=== PATIENT | female | born 1975 | race Two or more races ===

== ENCOUNTER 2021-09-21 04:29 | Inpatient (IN) | payer OTHER ==
[2021-09-17 17:13] VITALS: BMI 25.6
[2021-09-21] MEDS ORDERED: MIDAZOLAM HCL 2 MG/2 ML SINGLE DOSE VIAL ONE ×2 (07:01)
[2021-09-21] MEDS ORDERED: PROPOFOL 20 ML ONE ×2 (07:01)
[2021-09-21] MEDS ORDERED: ROCURONIUM BROMIDE 50 MG/5 ML SYRINGE ONE ×3 (07:02→09:58)
[2021-09-21] MEDS ORDERED: SUCCINYLCHOLINE CHLORIDE 200 MG/10 ML SYRINGE ONE (07:02)
[2021-09-21] MEDS ORDERED: BUPIVACAINE LIPOSOME/PF (EXPAREL) 266 MG/20 ML VIAL ONE (07:42)
[2021-09-21] MEDS ORDERED: BUPIVACAINE HCL/PF 0.25% (2.5MG/ML) 10 ML VIAL ONE (07:43)
[2021-09-21] MEDS ORDERED: HYDROmorphone HCl 2 MG/ML VIAL ONE (08:23)
[2021-09-21] MEDS ORDERED: ceFAZolin SODIUM 1 GM VIAL IVPB ONE (08:25)
[2021-09-21] MEDS ORDERED: DEXAMETHASONE SOD PHOSPHATE 4 MG/1 ML VIAL ONE (08:56)
[2021-09-21] MEDS ORDERED: ceFAZolin SODIUM 1 GM VIAL ONE (08:56)
[2021-09-21] MEDS ORDERED: KETOROLAC TROMETHAMINE 30 MG/1 ML VIAL ONE (08:56)
[2021-09-21] MEDS ORDERED: NEOSTIGMINE METHYLSULFATE 0.5 MG/ML - 10 ML MDV ONE (10:09)
[2021-09-21] MEDS ORDERED: GLYCOPYRROLATE 0.2 MG/1 ML VIAL ONE (10:09)
[2021-09-21] MEDS ORDERED: TRANEXAMIC ACID 1000 MG/10 ML VIAL ONE (10:10)
[2021-09-21] MEDS ORDERED: HYDROmorphone *PCA* 10MG/50ML DISP.SYRIN ONE (11:04)
[2021-09-21] MEDS: HYDROmorphone *PCA* 10MG/50ML DISP.SYRIN PCA SCH (11:10)
[2021-09-21] MEDS ORDERED: ONDANSETRON 4 MG/2 ML VIAL IVPUSH PRN ×2 (11:17)
[2021-09-21] MEDS ORDERED: ACETAMINOPHEN 1000 MG/100 ML BAG IVPB ONE ×2 (11:19→13:15)
[2021-09-21] MEDS ORDERED: ACETAMINOPHEN INJECTION 100 ML IVPB ONE (13:12)
[2021-09-21] MEDS: LACTATED RINGERS SOLUTION 1,000 ML IV SCH ×2 (13:40→22:00)
[2021-09-22] MEDS: LACTATED RINGERS SOLUTION 1,000 ML IV SCH ×2 (06:00→11:45)
[2021-09-22 08:07] LABS: HEMATOCRIT 32.4 % (32.4-45.2); HEMOGLOBIN 11.1 GM/dL (10.7-15.3); MCH 30.5 pg (25.7-33.7); MCHC 34.3 g/dl (32.0-36.0); MEAN CELL VOLUME 88.8 fl (80-96); MEAN PLT VOLUME 8.1 fl (7.5-11.1); PLATELET COUNT 223 10^3/uL (134-434); RBC 3.65 M/mm3 (3.60-5.2); RDW 13.2 % (11.6-15.6); WHITE BLOOD COUNT 7.8 K/mm3 (4.0-10.0)
[2021-09-22] MEDS ORDERED: oxyCODONE HCL 5 MG TABLET PO PRN ×2 (08:22)
[2021-09-22] MEDS ORDERED: ACETAMINOPHEN 325 MG TABLET (FP) PO PRN (08:22)
[2021-09-22] MEDS ORDERED: BISACODYL 10 MG SUPP.RECT PR PRN (08:24)
[2021-09-22 08:25] LABS: CALCIUM 8.2 mg/dL (8.5-10.1)
[2021-09-22 08:26] LABS: BLOOD UREA NITROGEN 7.7 mg/dL (7-18)
[2021-09-22 08:29] LABS: CREATININE 0.6 mg/dL (0.55-1.3)
[2021-09-22] MEDS: IBUPROFEN 600 MG TABLET (FP) PO PRN (11:12)
[2021-09-22] MEDS: SIMETHICONE 80 MG TAB.CHEW (FP) PO PRN (11:12)
[2021-09-22] MEDS: HYDROmorphone *PCA* 10MG/50ML DISP.SYRIN PCA SCH (11:45)
[2021-09-22] MEDS: ENOXAPARIN NA (PORCINE) 40 MG/0.4 ML DISP.SYRIN SQ SCH (14:33)
[2021-09-23] MEDS: IBUPROFEN 600 MG TABLET (FP) PO PRN (09:14)
[2021-09-23] MEDS: SIMETHICONE 80 MG TAB.CHEW (FP) PO PRN (09:15)
[2021-09-23] MEDS: ENOXAPARIN NA (PORCINE) 40 MG/0.4 ML DISP.SYRIN SQ SCH (09:15)
[2021-09-23 11:19] VITALS: BP 117/64; PULSE 92; TEMP 98.9
== END 2021-09-23 14:25 | disposition home or self-care (01) | DRG 513 ==
LOC: J2C 04:29 → J3W 14:09
PROVIDERS: ADMIT Obstetrics & Gynecology; ATTEND Obstetrics & Gynecology
PROC: 0UT70ZZ Resection of Bilateral Fallopian Tubes, Open Approach (ICD-10-PCS; 2021-09-21)
PROC: 0UT90ZZ Resection of Uterus, Open Approach (ICD-10-PCS; principal; 2021-09-21 08:00)
DX: N92.0 Excessive and frequent menstruation with regular cycle (principal); D25.9 Leiomyoma of uterus, unspecified; D64.9 Anemia, unspecified
CPT/HCPCS: 36415; 80048; 81025; 85027; 88302-TC; 88307-TC; 94010; 94760

== ENCOUNTER 2023-06-26 11:59 | Emergency (ER) | payer OTHER ==
[2023-06-26 12:11] VITALS: BP 103/58; PULSE 63; RESP 18; TEMP 98; BMI 28.3
[2023-06-26] MEDS ORDERED: ACETAMINOPHEN 500 MG TABLET (FP) ONE (12:47)
[2023-06-26] MEDS ORDERED: LIDOCAINE 4% PATCH TP ONE (12:47)
[2023-06-26 12:52] LABS: HCG,QUALITATIVE URINE Negative
[2023-06-26] MEDS: ACETAMINOPHEN 500 MG TABLET (FP) PO ONE (12:52)
[2023-06-26] MEDS: LIDOCAINE 4% PATCH TP ONE (12:52)
[2023-06-26] MEDS ORDERED: CYCLOBENZAPRINE HCL 10 MG TABLET (FP) ONE (12:54)
[2023-06-26] MEDS ORDERED: IBUPROFEN 600 MG TABLET (FP) PO ONE (12:54)
[2023-06-26] MEDS: CYCLOBENZAPRINE HCL 10 MG TABLET (FP) PO ONE (12:57)
[2023-06-26] MEDS: IBUPROFEN 600 MG TABLET (FP) PO ONE (12:57)
[2023-06-26 13:05] LABS: EPI CELLS 7 /uL (0-25.1); HYALINE CASTS 0 /uL (0-3.1); URINE APPEARANCE CLEAR; URINE BACTERIA 319 /uL (0-1359); URINE BILIRUBIN NEGATIVE (NEGATIVE); URINE COLOR YELLOW; URINE GLUCOSE (UA) NEGATIVE (NEGATIVE); URINE KETONE NEGATIVE (NEGATIVE); URINE LEUK ESTERASE NEGATIVE (NEGATIVE); URINE NITRITE NEGATIVE (NEGATIVE); URINE PROTEIN NEGATIVE (NEGATIVE); URINE RBC 8 /uL (0-23.9); URINE UROBILINOGEN 0.2 mg/dL (0.2-1.0); URINE WBC 5 /uL (0-25.8)
[2023-06-26] MEDS ORDERED: predniSONE 20 MG TABLET (UD) ONE (14:43)
[2023-06-26] MEDS: predniSONE 20 MG TABLET (UD) PO ONE (14:45)
[2023-06-26] MEDS ORDERED: LIDOCAINE PATCH REMOVAL MC ONE (22:00)
== END 2023-06-26 14:52 | disposition home or self-care (01) ==
LOC: JER 11:59
DX: M54.50 Low back pain, unspecified (principal); M51.26 Other intervertebral disc displacement, lumbar region
CPT/HCPCS: 72131-TC; 81003; 84703; 87086; 99284-25